=== PATIENT | female | born 1965 | race Caucasian/White ===

== ENCOUNTER → 2025-01-16 15:03 | Outpatient (REF) | payer BC, SELFPAY | LOC: HWWDC 15:03 | PROVIDERS: ATTENDING PHYSICIAN Physician Assistant Medical; REFERRING PHYSICIAN Obstetrics & Gynecology | DX: Z12.31 Encounter for screening mammogram for malignant neoplasm of breast (principal) | CPT/HCPCS: 77063; 77067 ==